=== PATIENT | male | born 1975 | race Caucasian/White ===

== ENCOUNTER 2018-10-25 01:17 | Emergency (ER) | payer MEDICAID ==
[~2018-10-25] VITALS: Ht 182.9 cm; Wt 81.6 kg
[2018-10-25] MEDS ORDERED: NKM (01:21)
[2018-10-25] MEDS ORDERED: Tetanus/Diptheria/Pertussis Vaccine 0.5ml Syr IM ONE (01:45)
[2018-10-25] MEDS ORDERED: IBUPROFEN600 MG ORAL (02:49)
[2018-10-25] MEDS ORDERED: CEPHALEXIN500 MG ORAL (02:49)
[2018-10-25] MEDS ORDERED: ACETAMINOPHEN-1 EAC1 ORAL (02:49)
[2018-10-25] MEDS ORDERED: Cephalexin 500mg cap ORAL ONE (03:00)
[2018-10-25 03:14] VITALS: BP 107/98
--- NOTE | 2018-10-25 03:14 | Emergency Room Report ---
History of Present Illness General Chief Complaint: Lower Extremity Injury Source: Patient Present Illness HPI 42-year-old male is ED for evaluation. Patient brought in by EMS with left ankle pain and swelling. States that he tripped off train track 4 days ago. Notes abrasions and redness to his left leg. Tetanus unknown. Pain is throbbing, 7 out of 10, nonradiating. Denies any other injuries. No other aggravating relieving factors. Denies any other associated symptoms Allergies: Coded Allergies: No Known Allergies (Unverified , 10/25/18) Patient History Past Medical History: psych hx Past Surgical History: none Pertinent Family History: none Social History: Denies: smoking, drug use Immunizations: UTD Reviewed Nursing Documentation: PMH: Agreed; PSxH: Agreed Nursing Documentation-PMH Hx Hypertension: Yes Hx Asthma: Yes History Of Psychiatric Problem: Yes - Heroin use, anxiety Review of Systems All Other Systems: negative except mentioned in HPI Physical Exam Vital Signs Date Time Temp Pulse Resp B/P (MAP) Pulse Ox O2 Delivery O2 Flow Rate FiO2 10/25/18 01:12 98.1 105 16 107/98 93 Room Air Sp02 EP Interpretation: reviewed, normal General Appearance: no apparent distress, alert, GCS 15, non-toxic Head: normocephalic Eyes: bilateral eye normal inspection, bilateral eye PERRL ENT: normal ENT inspection Neck: normal inspection Respiratory: normal inspection Cardiovascular #1: normal inspection Gastrointestinal: normal inspection Rectal: deferred Genitourinary: no CVA tenderness Musculoskeletal: swelling - L ankle Neurologic: alert, oriented x3, responsive, motor strength/tone normal, sensory intact, speech normal Psychiatric: judgement/insight normal, memory normal, mood/affect normal, no suicidal/homicidal ideation Skin: other - superficial abrasions to LLE, erythema/induration noted Lymphatic: normal inspection Procedures Splinting Splinting : Consent: Verbal Splint: poserior short Pre-Proc Neuro Vasc Exam: normal Post-Proc Neuro Vasc Exam: normal Patient Tolerated: Well Complications: None Medical Decision Making Diagnostic Impression: Primary Impression: Cellulitis of lower extremity Qualified Codes: L03.116 - Cellulitis of left lower limb Additional Impression: Ankle sprain Qualified Codes: S93.402A - Sprain of unspecified ligament of left ankle, initial encounter ER Course Hospital Course 42 yo M presents with L ankle pain/swelling s/p fall Differential diagnoses include: Fracture, dislocation, sprain, contusion Clinical course Patient placed on stretcher. After initial history and physical, I ordered TDAP and Xrays of L foot/ankle X-ray shows no obvious fracture, hardware from prior surgery in place. I do not appreciate fracture given pronounced swelling we will placed in posterior splint with crutches. Consideration for mild cellulitis around the area given abrasions. We'll discharge with antibiotics. Given Keflex here homeless discharge packet completed. Safe for discharge with close outpatient follow-up. We'll provide orthopedic referrals and clinic referrals Diagnosis - ankle sprain, cellulitis of lower extremity Stable and discharged to home with prescription for Motrin, tylenol #3, Keflex. apply ice, keep elevated. weight bear as tolerated. Followup with ortho. Return to ED if symptoms recur or worsen Other X-Ray Diagnostic Results Other X-Ray Diagnostic Results #1: X-Ray ordered: L foot # of Views/Limited Vs Complete: 3 View Indication: Pain EP Interpretation: Yes Interpretation: no dislocation, no fractures, other - screw in place Impression: No acute disease Electronically Signed by: Electronically signed by Neno Hall MD Other X-Ray Diagnostic Results #2: X-Ray ordered: L ankle # of Views/Limited Vs Complete: 3 View Indication: Pain EP Interpretation: Yes Interpretation: no dislocation, no fractures, other - hardware in place Impression: No acute disease Electronically Signed by: Electronically signed by Neno Hall MD Last Vital Signs Date Time Temp Pulse Resp B/P (MAP) Pulse Ox O2 Delivery O2 Flow Rate FiO2 10/25/18 01:12 98.1 105 16 107/98 93 Room Air Status: improved Disposition: HOME, SELF-CARE Condition: Stable Scripts Cephalexin* (KEFLEX*) 500 Mg Capsule 500 MG ORAL EVERY 6 HOURS for 7 Days, CAP Prov: Neno Hall MD 10/25/18 Acetaminophen With Codeine (T#3) (TYLENOL #3 TAB*) Y Tab 1 TAB ORAL Q8H PRN for For Pain for 3 Days, TAB Prov: Neno Hall MD 10/25/18 Ibuprofen* (MOTRIN*) 600 Mg Tablet 600 MG ORAL Q8H PRN for For Pain, #30 TAB 0 Refills Prov: Neno Hall MD 10/25/18 Referrals: NOT CHOSEN IPA/,REFERRING (PCP) Zach Lee [facility] Open 24 hour /7 days a week by Appointment Only [address] [facility] [address] [facility] Patient Instructions: Ankle Sprain Neno Hall MD Oct 25, 2018 03:14
--- NOTE | 2018-10-25 05:02 | Emergency Room Report ---
Physical Exam Vital Signs Date Time Temp Pulse Resp B/P (MAP) Pulse Ox O2 Delivery O2 Flow Rate FiO2 10/25/18 01:12 98.1 105 16 107/98 93 Room Air Medical Decision Making Homeless Attestation I, The treating physician Dr. Hall, has assessed and agrees that patient is medically stable for discharge to an outpatient disposition. Diagnostic Impression: Primary Impression: Cellulitis of lower extremity Qualified Codes: L03.116 - Cellulitis of left lower limb Additional Impression: Ankle sprain Qualified Codes: S93.402A - Sprain of unspecified ligament of left ankle, initial encounter Last Vital Signs Date Time Temp Pulse Resp B/P (MAP) Pulse Ox O2 Delivery O2 Flow Rate FiO2 10/25/18 03:14 98.1 16 107/98 93 Room Air 10/25/18 01:12 105 Status: improved Disposition: HOME, SELF-CARE Condition: Stable Scripts Cephalexin* (KEFLEX*) 500 Mg Capsule 500 MG ORAL EVERY 6 HOURS for 7 Days, CAP Prov: Neno Hall MD 10/25/18 Acetaminophen With Codeine (T#3) (TYLENOL #3 TAB*) Y Tab 1 TAB ORAL Q8H PRN for For Pain for 3 Days, TAB Prov: Neno Hall MD 10/25/18 Ibuprofen* (MOTRIN*) 600 Mg Tablet 600 MG ORAL Q8H PRN for For Pain, #30 TAB 0 Refills Prov: Neno Hall MD 10/25/18 Referrals: NOT CHOSEN IPA/,REFERRING (PCP) Zach Lee [facility]. [facility] Open 24 hour /7 days a week by Appointment Only [address] [facility] [address] [facility] Patient Instructions: Ankle Sprain Neno Hall MD Oct 25, 2018 05:02
--- NOTE | 2018-10-25 11:44 | Diagnostic Imaging Report ---
Indication: Left ankle pain Technique: 3 views of the left ankle Comparison: none Findings: Surgical nail is seen reducing old healed medial malleolar fracture. No acute fractures. No dislocations. Small calcific densities projected medial and posterior to the medial malleolus may be related to prior injury, do not to be acute fracture fragments. There is medial and lateral soft tissue swelling. There also appears to be edema of the distal leg subcutaneous fat. Impression: Postsurgical and posttraumatic changes, as described No definite acute bony trauma
--- NOTE | 2018-10-25 11:46 | Diagnostic Imaging Report ---
Indication: Left foot pain Technique: 3 views left foot Comparison: none Findings: There is severe hallux valgus and bunion formation. There are degenerative changes of the first metatarsophalangeal joint. The first metatarsal sesamoids appear hypertrophied. There is an old healed fracture deformity of the second metatarsal shaft, and questionably of the fourth metatarsal shaft. No acute fractures. No dislocations. The remaining joint spaces are preserved. A surgical nail is seen in the medial malleolus. Impression: Chronic changes, as described No definite acute bony trauma
== END 2018-10-25 03:16 | disposition home or self-care (01) ==
LOC: EDBD 01:17 → EMR 02:42
DX: L03.116 Cellulitis of left lower limb (principal); S93.402A Sprain of unspecified ligament of left ankle, initial encounter; W01.0XXA Fall on same level from slipping, tripping and stumbling without subsequent striking against object, initial encounter; Y92.89 Other specified places as the place of occurrence of the external cause; Z23 Encounter for immunization; I10 Essential (primary) hypertension; J45.909 Unspecified asthma, uncomplicated
CPT/HCPCS: 29515; 90471; 90715; 99283